=== PATIENT | female | born 1990 | race Caucasian/White ===

== ENCOUNTER → 2019-01-04 | Emergency (ER) | payer MEDICAID ==
[~2019-01-04] VITALS: Ht 154.9 cm; Wt 49.9 kg
[~2019-01-04] MED LIST: Isovue-300 100ml vial INJ PRN; Ketorolac 30mg Inj IV ONE; Morphine Sulfate 4mg/ml Inj (IV USE ONLY) IVP ONE; NKM; cefTRIAXone 1 GM in NS 55 ML IVPB ONE; fentaNYL 100 mcg/2 mL IV ONE
[2019-01-04 05:30] VITALS: BP 145/81
--- NOTE | 2019-01-04 05:30 | NUR ---
ED Nurse Note: Pt arrived ED from home, Pt states that she had 2 weeks ago and had lower abdominal pain for 2 days and get worse tonight, pain 10/10 . Pt is A/O X 4, Hr 122/ ST at this time. Dr. Raphael at bed side, waitng for orders.
--- NOTE | 2019-01-04 05:39 | Emergency Room Report ---
History of Present Illness General Chief Complaint: Abdominal Pain Source: Patient Present Illness [facility] This is a 28-year-old female with no past medical history. She had an elective with D&C 2 weeks ago. She was about 6 weeks gestation. She had no complications since then. She did have control implant her arm. She presents with chief complaint abdominal pain. Has been on and off for the last 3 days but worsened tonight. It is severe. Periumbilical. Now is 10 out of 10. She has nausea and vomiting. No diarrhea. Nothing made it better. Pain is described as sharp and crampy. Allergies: Coded Allergies: No Known Allergies (Unverified , 01/04/19) Patient History Past Medical History: see triage record, old chart reviewed Past Surgical History: other Pertinent Family History: none Social History: Denies: smoking Last Menstrual Period: dec 18, 2018 Now: No Immunizations: other Reviewed Nursing Documentation: PMH: Agreed; PSxH: Agreed Nursing Documentation-PMH Past Medical History: No Stated History Review of Systems Eye: Denies: eye pain, blurred vision ENT: Denies: ear pain, nose congestion, throat swelling Respiratory: Denies: cough, shortness of breath Cardiovascular: Denies: chest pain, palpitations Gastrointestinal: Reports: abdominal pain, nausea, vomiting; Denies: diarrhea Musculoskeletal: Denies: back pain, joint pain Skin: Denies: rash Neurological: Denies: headache, numbness Endocrine: Denies: increased thirst, increased urine Hematologic/Lymphatic: Denies: easy bruising All Other Systems: negative except mentioned in HPI Physical Exam Vital Signs Date Time Temp Pulse Resp B/P (MAP) Pulse Ox O2 Delivery O2 Flow Rate FiO2 01/04/19 05:24 97.9 115 18 108/79 95 Room Air vitals with tachycardia Sp02 EP Interpretation: reviewed, normal General Appearance: well appearing, no apparent distress, alert Head: normocephalic, atraumatic Eyes: bilateral eye PERRL, bilateral eye EOMI ENT: hearing grossly normal, normal pharynx Neck: full range of motion, supple, no meningismus Respiratory: chest non-tender, lungs clear, normal breath sounds Cardiovascular #1: regular rate, rhythm, no murmur Gastrointestinal: no mass, no organomegaly, no bruit, non-distended, tenderness - Diffuse, decreased bowel sounds Musculoskeletal: back normal, gait/station normal, normal range of motion Psychiatric: anxious Skin: warm/dry Medical Decision Making Diagnostic Impression: Primary Impression: Abdominal pain Qualified Codes: R10.84 - Generalized abdominal pain Additional Impression: Nausea & vomiting Qualified Codes: R11.2 - Nausea with vomiting, unspecified ER Course Patient presents with abdominal pain. She had a recent D&C but that was 2 weeks ago. Labs pending. Pain better after medicine. IV fluid given. CT scan pending. I will sign this patient out to Dr. Roper for final disposition. Last Vital Signs Date Time Temp Pulse Resp B/P (MAP) Pulse Ox O2 Delivery O2 Flow Rate FiO2 01/04/19 05:24 97.9 115 18 108/79 95 Room Air Status: improved Condition: Stable Juve Raphael MD Jan 04, 2019 05:39
--- NOTE | 2019-01-04 05:50 | NUR ---
ED Nurse Note: Blood and urine sample collected and sent to Lab.
--- NOTE | 2019-01-04 05:57 | NUR ---
ED Nurse Note: Pain meds given as ordered.
[2019-01-04 06:11] LABS: BASOPHILS % (AUTO) 0.9 % (0.0-2.0); EOSINOPHILS % (AUTO) 0.7 % (0.0-3.0); LYMPHOCYTES % (AUTO) 12.2 % (20.0-45.0); MEAN CORPUSCULAR VOLUME 92 FL (80-99); MONOCYTES % (AUTO) 4.7 % (1.0-10.0); NEUTROPHILS % (AUTO) 81.5 % (45.0-75.0); PLATELET COUNT 371 K/UL (150-450); RED BLOOD COUNT 4.58 M/UL (4.20-5.40); RED CELL DISTRIBUTION WIDTH 11.1 % (11.6-14.8); WHITE BLOOD COUNT 16.3 K/UL (4.8-10.8)
[2019-01-04 06:15] LABS: APPEARANCE,URINE CLEAR; BILIRUBIN, URINE NEGATIVE (NEGATIVE); COLOR,URINE PALE YELLOW; GLUCOSE, URINE (UA) NEGATIVE (NEGATIVE); KETONES,URINE 1+ (NEGATIVE); LEUKOCYTE ESTERASE ,URINE NEGATIVE (NEGATIVE); NITRITE,URINE NEGATIVE (NEGATIVE); PH,URINE 5 (4.5-8.0); PROTEIN,URINE 2+ (NEGATIVE); UROBILINOGEN,URINE NORMAL MG/DL (0.0-1.0)
--- NOTE | 2019-01-04 06:22 | NUR ---
ED Nurse Note: Pt is waiting for abdominal CT.
[2019-01-04 06:31] LABS: ANION GAP 15 mmol/L (5-15); BLOOD UREA NITROGEN 25 mg/dL (7-18); CALCIUM 9.3 MG/DL (8.5-10.1); CARBON DIOXIDE 22 MMOL/L (21-32); CHLORIDE 103 MMOL/L (98-107); CREATININE 0.7 MG/DL (0.55-1.30); SODIUM 140 MMOL/L (136-145)
--- NOTE | 2019-01-04 06:35 | NUR ---
ED Nurse Note: Pt was sent for U/S.
[2019-01-04 06:36] LABS: ALANINE AMINOTRANSFERASE 22 U/L (12-78); ALBUMIN 4.3 G/DL (3.4-5.0); ALBUMIN/GLOBULIN RATIO 1.2 (1.0-2.7); ALKALINE PHOSPHATASE 69 U/L (46-116); ASPARTATE AMINO TRANSFERASE 18 U/L (15-37); BILIRUBIN,TOTAL 0.5 MG/DL (0.2-1.0)
--- NOTE | 2019-01-04 07:21 | NUR ---
HAND-OFF: Pt returned from U/S. Report given to Adryan/PAUL. Pt is a/o x4. VSS.
--- NOTE | 2019-01-04 07:24 | NUR ---
ED Nurse Note: REPORT RECEIVED FROM PAUL TITUS. PT LAYING PEACEFULLY IN BED IN NAD. AOX4. VSS.
[2019-01-04 07:25] VITALS: BP 108/69
--- NOTE | 2019-01-04 09:17 | NUR ---
ED Nurse Note: XRAY AT BEDSIDE. PT VOMITING AT THIS TIME. XRAY TO RETURN AT A LATER TIME.
--- NOTE | 2019-01-04 09:18 | NUR ---
Per Dr. Roper patient was provided with summary report, lab report, Doctors dictation, medication list and Ultrasound report.
[2019-01-04 09:24] VITALS: BP 118/76
--- NOTE | 2019-01-04 09:26 | NUR ---
ED Nurse Note: PT LAYING PEACEFULLY IN BED IN NAD. AOX4. DISCHARGE PAPERWORK EXPLAINED TO PT. PT VERBALIZES UNDERSTANDING AND ALL QUESTIONS ANSWERED. DISCHARGE PAPERWORK GIVEN TO PT, IV AND ID WRISTBAND REMOVED. PT WALKED OUT OF ER WITH STEADY GAIT AND ALL BELONGINGS.
--- NOTE | 2019-01-04 09:50 | Diagnostic Imaging Report ---
Indication: Positive test, bleeding 17 days post dilatation and curettage Technique: Transabdominal and transvaginal images. Doppler interrogation of the bilateral ovaries Comparison: none Findings: Uterus measures 9.8 cm in length by 4.4 cm AP. The upper endometrium is somewhat thickened, and contains echogenic material which is hypervascular. Echogenic foreign body is seen in the lower endometrium extending into the endocervical canal. Ovaries are normal in size and demonstrate normal flow. No free cul-de-sac fluid demonstrated Impression: Echogenic hypervascular material in the upper endometrium, suggestive of retained products of conception Evidence of intrauterine device, appears low-lying within the lower uterine segment and possibly extending into the endocervical canal Normal ovaries This agrees with the preliminary interpretation provided overnight by [facility] service.
== END | disposition home or self-care (01) ==
LOC: EMR 05:46
DX: R10.84 Generalized abdominal pain (principal); R11.2 Nausea with vomiting, unspecified; O02.1 Missed abortion; Z97.5 Presence of (intrauterine) contraceptive device
CPT/HCPCS: 36415; 76830; 76856; 80053; 81003; 81025; 83690; 84702; 85025; 87086; 96361; 96365; 96375; 99284; J0696; J1885; J2270; J2405; J3010